=== PATIENT | male | born 1995 | race African-American/Black ===

== ENCOUNTER 2017-06-16 19:50 | Emergency (ER) | payer MEDICAID, OTHER ==
[2017-06-16] MEDS ORDERED: Ondansetron 4 MG/2 ML SDV IM ONE (20:20)
[2017-06-16] MEDS ORDERED: Ondansetron 4 MG/2 ML SDV IVPUSH ONE (20:20)
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
== END 2017-06-16 21:38 | disposition home or self-care (01) ==
LOC: VM.ED 19:50
DX: S09.90XA Unspecified injury of head, initial encounter (principal); V47.5XXA Car driver injured in collision with fixed or stationary object in traffic accident, initial encounter
CPT/HCPCS: 70450; 72125; 96372; 99284; J2405